=== PATIENT | male | born 1945 | race Asian ===

== ENCOUNTER 2019-01-24 14:50 | Emergency (ER) | payer BC ==
[~2019-01-24] VITALS: Ht 177.8 cm; Wt 90.7 kg
[2019-01-24 15:00] VITALS: BP 154/96
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
[2019-01-24] MEDS ORDERED: TYLENOL EXTRA500 MG ORAL (15:45)
[2019-01-24] MEDS ORDERED: LIDODERM700 M1 TOPIC (15:45)
[2019-01-24 16:00] VITALS: BP 144/80
--- NOTE | 2019-01-24 16:12 | Diagnostic Imaging Report ---
Indication: Chest pain Technique: One view of the chest Comparison: none Findings: Lungs and pleural spaces are clear. Heart size is normal. Impression: No acute process
== END 2019-01-24 16:00 | disposition home or self-care (01) ==
LOC: EDBD 14:50 → EMR 15:34
DX: R07.89 Other chest pain (principal); I10 Essential (primary) hypertension; V43.52XA Car driver injured in collision with other type car in traffic accident, initial encounter; Y92.411 Interstate highway as the place of occurrence of the external cause
CPT/HCPCS: 71045; 93005; 99283